=== PATIENT | female | born 2000 | race Caucasian/White ===

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

== ENCOUNTER → 2021-04-12 | Outpatient (REF) | payer OTHER ==
[~2021-04-12] MED LIST: NO MEDICATIONS
[2021-04-12 13:00] LABS: BASO % 0.6 % (0.0-1.0); EOS # 0.2 10^3/uL (0.0-0.5); HEMATOCRIT 40.7 % (36.0-47.0); HEMOGLOBIN 13.6 g/dl (12.0-15.5); LYMPH # 2.2 10^3/uL (1.5-5.0); LYMPH % 41.6 % (24.0-44.0); MEAN CORPUSCULAR HEMOGLOBIN 29.7 pg (27.0-33.0); MEAN CORPUSCULAR HGB CONC 33.4 g/dl (32.0-36.5); MEAN CORPUSCULAR VOLUME 88.9 fl (80.0-96.0); MONO # 0.4 10^3/uL (0.0-0.8); MONO % 7.8 % (2.0-8.0); NEUTROPHILS # 2.5 10^3/uL (1.5-8.5); NEUTROPHILS % 46.6 % (36.0-66.0); PLATELET COUNT, AUTOMATED 129 10^3/uL (150-450); RED BLOOD COUNT 4.58 10^6/uL (4.00-5.40); WHITE BLOOD COUNT 5.3 10^3/uL (4.0-10.0)
[2021-04-12 13:22] LABS: BLOOD UREA NITROGEN 13 MG/DL (7-18); CALCIUM LEVEL 9.1 MG/DL (8.5-10.1); CARBON DIOXIDE LEVEL 29 MEQ/L (21-32); CHLORIDE LEVEL 108 MEQ/L (98-107); CREATININE FOR GFR 0.63 MG/DL (0.55-1.30); GLUCOSE, FASTING 73 MG/DL (70-100); POTASSIUM SERUM 3.9 MEQ/L (3.5-5.1); SODIUM LEVEL 141 MEQ/L (136-145)
== END ==
LOC: M SFHCADAM 09:08
PROVIDERS: ATTEND Physician Assistant
DX: L02.91 Cutaneous abscess, unspecified (principal)

== ENCOUNTER → 2021-04-12 | Outpatient (CLI) | payer OTHER ==
--- NOTE | 2021-04-12 11:54 | REP ---
INDICATION: LT BREAST CUTANEOUS ABSCESS, UNSPECIFIED. COMPARISON: No comparison breast imaging.. TECHNIQUE: Targeted left breast sonography is performed. FINDINGS: Left breast is scanned from 1-2 o'clock position in the area of redness which the patient reports is no longer painful and has been present x2 weeks. Normal heterogeneous fibroglandular background echotexture is seen. Adjacent to the nipple there is a hypoechoic area in the dermis and superficial breast parenchyma measuring 1.6 x 0.5 x 1.8 cm. Within this there is a slightly hyperechoic component measuring 0.6 cm in greatest diameter. This could be a small superficial abscess collection. On color Doppler, it does not appear hyperemic however. Question resolving. IMPRESSION: BI-RADS category 3 probably benign findings. Possible subdermal abscess in the retroareolar region of the left breast 1.8 x 1.6 x 0.5 cm. Repeat scanning is suggested post treatment to document resolution. <Electronically signed by Siva Mclain > 04/12/21 [id number]
== END ==
LOC: M RAD 11:16
PROVIDERS: ATTEND Physician Assistant
DX: L02.91 Cutaneous abscess, unspecified (principal)

== ENCOUNTER → 2021-04-28 | Outpatient (CLI) | payer OTHER ==
--- NOTE | 2021-04-28 11:55 | REP ---
INDICATION: F/U CAT 3 LEFT BREAST ABSCESS TO SHOW RESOLUTION. COMPARISON: Comparison breast sonography April 12, 2021. TECHNIQUE: Targeted left breast sonography 1 to 2 o'clock position Karla areolar region. FINDINGS: Previously noted 1.8 cm subdermal hypoechoic area presumed to be abscess is no longer apparent. There is subtle residual dermal thickening in the region but no fluid collection is seen. No mass or cyst is observed. IMPRESSION: BI-RADS category 2 benign findings. Clinical follow-up is advised. <Electronically signed by Siva Mclain > 04/28/21 [id number]
== END ==
LOC: M WHC 10:35
PROVIDERS: ATTEND Physician Assistant
DX: N61.1 Abscess of the breast and nipple (principal)